=== PATIENT | female | born 1995 | race American Indian/Alaskan Native ===

== ENCOUNTER 2018-06-04 16:31 | Emergency (ER) | payer OTHER ==
[2018-06-04 16:49] VITALS: BMI 22.6
[2018-06-04 16:54] VITALS: TEMP 98.4
--- NOTE | 2018-06-04 17:33 | C.PDOC ---
History Of Present Illness 22 year old female presents to the ED complaining of chest congestion and cough for 3 days. Reports she has been taking Promethazine that was previously prescribed to her for a cold but she notes no relief. Reports it does not feel like a regular cold but it is similar to when she had bronchitis. Denies any fever, chills, ear pain, throat pain, chest pain, sob, n/v, or palpitations. Time Seen by Provider: 06/04/18 16:58 Chief Complaint (Nursing): Cough, Cold, Congestion History Per: Patient History/Exam Limitations: no limitations Onset/Duration Of Symptoms: Days Current Symptoms Are (Timing): Still Present Associated Symptoms: Cough, Other (chest congestion) Ear Symptoms: Bilateral: None Past Medical History Reviewed: Historical Data, Nursing Documentation, Vital Signs Vital Signs: Last Vital Signs Temp 98.4 F 06/04/18 16:49 Pulse 89 06/04/18 16:49 Resp 17 06/04/18 16:49 BP 139/93 H 06/04/18 16:49 Pulse Ox 100 06/04/18 16:49 - Medical History PMH: Bronchitis, Pneumonia Surgical History: No Surg Hx Family History: States: No Known Family Hx - Social History Hx Alcohol Use: Yes Hx Substance Use: No - Immunization History Hx Tetanus Toxoid Vaccination: No Hx Influenza Vaccination: No Hx Pneumococcal Vaccination: No Review Of Systems Constitutional: Negative for: Fever, Chills ENT: Negative for: Ear Pain, Throat Pain Cardiovascular: Negative for: Chest Pain, Palpitations Respiratory: Positive for: Cough, Shortness of Breath, Other (chest congestion ) Physical Exam - Physical Exam Appears: Non-toxic, No Acute Distress Skin: Warm, Dry, No Rash Head: Atraumatic, Normacephalic Eye(s): bilateral: Normal Inspection, EOMI Ear(s): Bilateral: Normal Nose: Normal Oral Mucosa: Moist Tongue: Normal Appearing Lips: Normal Appearing Throat: Normal, No Erythema, No Exudate Neck: Normal ROM, Supple Chest: Symmetrical Cardiovascular: Rhythm Regular Respiratory: Normal Breath Sounds, No Accessory Muscle Use, No Rales, No Rhonchi, No Wheezing, Other (persistent cough) Extremity: Normal ROM Neurological/Psych: Oriented x3, Normal Speech Gait: Steady ED Course And Treatment O2 Sat by Pulse Oximetry: 100 (RA) Pulse Ox Interpretation: Normal - Radiology CXR: Interpreted by Me, Viewed By Me CXR Interpretation: Yes: No Acute Disease Progress Note: On reassessment, patient is resting comfortably with no wheezing, chest pain, or retractions. Oxygen saturation WNL. Patient was advised to follow up with physician/clinic in 1-2 days and return to ED if symptoms worsen or persist. Disposition - Disposition Disposition: HOME/ ROUTINE Disposition Time: 17:54 Condition: STABLE Additional Instructions: Follow up with your primary medical doctor or clinic in 2-5 days for further evaluation. Take medications as prescribed. Return to the emergency department at any time if symptoms persist or worsen. Prescriptions: Albuterol HFA [Ventolin HFA 90 mcg/actuation (8 g)] 2 puff IH [id number] PRN #1 puff PRN Reason: Shortness Of Breath Azithromycin [Zithromax] 250 mg PO DAILY #6 tab Guaifen/Dextromethorphan/PE [Mucinex Fast-Max Congest-Cough] 1 each PO Q6 #20 ta blet Instructions: Acute Bronchitis, Adult (DC) Forms: [employer] (Polish) - Clinical Impression Clinical Impression: Bronchitis
[2018-06-04 18:14] VITALS: BP 119/84; PULSE 84; RESP 18
[2018-06-04 21:08] VITALS: O2SAT 100
--- NOTE | 2018-06-05 09:10 | RAD ---
Chest x-ray two views History: Chest pain. Comparison: None available. Findings: No focal infiltrate or effusion. Heart size within normal limits. Impression: No focal infiltrate or effusion.
== END 2018-06-04 18:13 | disposition home or self-care (01) ==
LOC: C.ER 16:31
DX: J40 Bronchitis, not specified as acute or chronic (principal)